=== PATIENT | female | born 1960 | race African-American/Black ===

== ENCOUNTER → 2016-08-11 | Outpatient (CLI) | payer BC ==
[~2016-08-11] MED LIST: GLUCOTROL PO; LISINOPRIL PO; METFORMIN PO; PREVACID PO; VOLTAREN75 MG PO
--- NOTE | ~2016-08-11 | CT137 ---
[facility] A Service [facility] RADIOLOGY TEXT RESULTS PATIENT: JONO LOERA LOCATION: [facility] : 56 UNIT #: [id number] AGE: [address]: Jordana Grey MD SEX: F ORDER DR: [id number] [address] [place], [place] [address] [id number] O MR#: [id number] Acc #: [id number] NAME: JONO LOERA. : 1960 SEX: F STUDY DATE/TIME: 08/11/2016 7:40 UNIT: [facility] ROOM: STUDY DESCRIPTION: CT Lung Screening annual Attending Physician: Jordana Grey M.D. Referring Physician: Jordana Grey M.D. Ordering Physician: Jordana Grey M.D. Primary Care Physician: Jordana Grey M.D. MEDICAL IMAGING REPORT This report is preliminary unless electronic signature is present EXAM CT scan of the chest without contrast lung cancer screening INDICATION 56-year-old female with 30 pack-year total smoking history. Former smoker quit [address] of the chest was performed without contrast using the low-dose lung cancer screening protocol. CT dose index 2.95 mGy. Coronal and sagittal reformatted images obtained. This CT examination was performed with one or more of the following radiation dose reduction techniques: automatic exposure control, adjustment of mA and/or kV according to patient size, and iterative reconstruction. COMPARISON 06/22/2015. FINDINGS Stable 6 mm nodule in the posterior right upper lobe. There is a new linear area of scarring or atelectasis in the superior segment of the left lower lobe. New scarring or atelectasis in the left upper lobe. There is no suspicious pulmonary nodule. Calcified mediastinal lymph nodes. No pleural effusion. Limited imaging of the upper abdomen demonstrates a cholecystectomy. Bone windows are unremarkable. IMPRESSION No suspicious pulmonary nodule. ACR Lung-RADS category 2. Follow up annual low-dose lung cancer screening chest CT in 1 year. Dictated by... Jassi Dorman M.D. [facility] A Service of [facility] RADIOLOGY TEXT RESULTS PATIENT: JONO LOERA LOCATION: [facility] : 56 UNIT #: [id number] AGE: [address]: Jordana Grey MD SEX: F ORDER DR: THIS IS AN ELECTRONICALLY VERIFIED REPORT Jassi Dorman M.D. at 08/11/2016 4:32 PM ANDRE/jaskaran TD: 08/11/2016 10:10 JOB #: [id number] MEDICAL IMAGING REPORT Page 1 of 1 COPY
== END | disposition home or self-care (01) ==
LOC: CCAT 07:04
DX: Z87.891 Personal history of nicotine dependence (principal)
CPT/HCPCS: G0297

== ENCOUNTER → 2016-11-07 | Outpatient (CLI) | payer BC, MEDICARE ==
--- NOTE | ~2016-11-07 | US136 ---
[facility] A Service [facility] RADIOLOGY TEXT RESULTS PATIENT: JONO LOERA LOCATION: [facility] : 56 UNIT #: [id number] AGE: [address]: Kvng Hernandez MD SEX: F ORDER DR: [id number] [facility]. [place], [place] [address] [id number] O MR#: [id number] Acc #: [id number] NAME: JONO LOERA : 1960 SEX: F STUDY DATE/TIME: 11/07/2016 13:26 UNIT: [facility] ROOM: STUDY DESCRIPTION: U/L Ext Art Study [facility] Bil Attending Physician: Kvng Hernandez M.D. Referring Physician: Kvng Hernandez M.D. Ordering Physician: Kvng Hernandez M.D. Primary Care Physician: Jordana Grey M.D. MEDICAL IMAGING REPORT This report is preliminary unless electronic signature is present EXAM Ankle-brachial indices HISTORY Peripheral vascular disease. FINDINGS Pulse volume recordings are significantly dampened at the ankle levels bilaterally. Doppler velocity waveforms are monophasic to flat at the ankles. Right brachial pressure is 180 and left brachial pressure is 177. On the right side, dorsalis pedis is 68, posterior tibial 66, great toe is 49 for a right ankle-brachial index of 0.38. On the left side, posterior tibial pressure is 42, dorsalis pedis 66, great toe is 25 for a left ankle-brachial index of 0.37. IMPRESSION Severe peripheral vascular disease is seen in the lower extremities bilaterally with ankle-brachial index of 0.38 on the right and 0.37 on the left. Dictated by... Kvng Hernandez M.D. THIS IS AN ELECTRONICALLY VERIFIED REPORT Kvng Hernandez M.D. at 11/08/2016 11:49 AM Marleny TD: 11/08/2016 06:32 [facility] A Service of [facility] RADIOLOGY TEXT RESULTS PATIENT: JONO LOERA LOCATION: [facility] #: [id number] : 56 UNIT #: [id number] AGE: [address]: Kvng Hernandez MD SEX: F ORDER DR: JOB #: [id number] MEDICAL IMAGING REPORT Page 1 of 1 COPY
== END | disposition home or self-care (01) ==
LOC: CNIV 13:11
DX: I73.9 Peripheral vascular disease, unspecified (principal)
CPT/HCPCS: 93922